=== PATIENT | male | born 1980 | race Caucasian/White ===

== ENCOUNTER 2022-08-10 19:54 | Emergency (ER) | payer OTHER, SELFPAY ==
[2022-08-10 20:02] VITALS: BP 150/88; PULSE 85; RESP 18; TEMP 36.6; O2SAT 97; BMI 25.8
== END 2022-08-10 23:28 | disposition left against medical advice (07) ==
PROVIDERS: Emergency Provider Emergency Medicine
CPT/HCPCS: 99281